=== PATIENT | female | born 1970 | race Caucasian/White ===

== ENCOUNTER → 2023-10-23 16:29 | Outpatient (REF) | payer BC, SELFPAY | LOC: HWWDC 16:29 | PROVIDERS: ATTENDING PHYSICIAN Obstetrics & Gynecology; FAMILY PHYSICIAN Family Medicine | DX: Z12.31 Encounter for screening mammogram for malignant neoplasm of breast (principal) | CPT/HCPCS: 77063; 77067 ==

== ENCOUNTER → 2023-12-13 08:57 | Outpatient (REF) | payer BC, SELFPAY | LOC: WDC 08:57 | PROVIDERS: ATTENDING PHYSICIAN Obstetrics & Gynecology; FAMILY PHYSICIAN Family Medicine | DX: R92.8 Other abnormal and inconclusive findings on diagnostic imaging of breast (principal) | CPT/HCPCS: 76642 ==

== ENCOUNTER → 2023-12-14 07:08 | Outpatient (REF) | payer BC, SELFPAY ==
--- NOTE | 2023-12-14 09:15 | OID.BR.INTR ---
[facility] Breast Navigator - Initial
- -
Date of Contact: 12/14/23
Met with patient. Patient given written information on navigator services and support services available at [facility]. Will follow up as needed per protocol.
== END ==
LOC: WDC 07:08
PROVIDERS: ATTENDING PHYSICIAN Obstetrics & Gynecology
DX: N63.20 Unspecified lump in the left breast, unspecified quadrant (principal)
CPT/HCPCS: 88305; 19083; 19084; 77065; 88341; 88342; 88360; A4648

== ENCOUNTER → 2023-12-25 16:19 | Outpatient (REF) | payer BC, SELFPAY | LOC: MRI 3T 16:19 | PROVIDERS: ATTENDING PHYSICIAN Surgery; FAMILY PHYSICIAN Family Medicine | DX: C50.412 Malignant neoplasm of upper-outer quadrant of left female breast (principal); Z17.0 Estrogen receptor positive status [ER+] | CPT/HCPCS: 77049; A9585 ==

== ENCOUNTER → 2024-01-02 09:02 | Outpatient (REF) | payer BC, SELFPAY | LOC: RAD 09:02 | PROVIDERS: ATTENDING PHYSICIAN Surgery; FAMILY PHYSICIAN Family Medicine | DX: C50.412 Malignant neoplasm of upper-outer quadrant of left female breast (principal); Z17.0 Estrogen receptor positive status [ER+] | CPT/HCPCS: 71260; 74177; 78306; A9503; Q9967 ==

== ENCOUNTER → 2024-01-10 07:20 | Outpatient (REF) | payer BC, SELFPAY | LOC: RCS 07:20 | PROVIDERS: ATTENDING PHYSICIAN Internal Medicine Hematology & Oncology; FAMILY PHYSICIAN Family Medicine | DX: C50.112 Malignant neoplasm of central portion of left female breast (principal) | CPT/HCPCS: 93306; 93356 ==

== ENCOUNTER → 2024-01-11 08:31 | Outpatient (REF) | payer BC, SELFPAY ==
[2024-01-11 08:50] VITALS: BP 110/65; BP_SYST 70
[2024-01-11] MEDS: ANCEF 10 IV (09:05)
[2024-01-11 10:35] VITALS: BP 121/77; BP_SYST 67
[2024-01-11 10:55] VITALS: BP 119/78
== END ==
LOC: RADI 08:31
PROVIDERS: ATTENDING PHYSICIAN Internal Medicine Hematology & Oncology; FAMILY PHYSICIAN Family Medicine
DX: C50.112 Malignant neoplasm of central portion of left female breast (principal)
CPT/HCPCS: 36561; 76937; 77001; 99152; 99153; C1788

== ENCOUNTER → 2024-03-13 14:31 | Outpatient (REF) | payer OTHER, SELFPAY | LOC: WDC 14:31 | PROVIDERS: ATTENDING PHYSICIAN Internal Medicine Hematology & Oncology; FAMILY PHYSICIAN Family Medicine | DX: N63.20 Unspecified lump in the left breast, unspecified quadrant (principal); C50.112 Malignant neoplasm of central portion of left female breast | CPT/HCPCS: 76642 ==

== ENCOUNTER → 2024-07-21 10:03 | Outpatient (REF) | payer OTHER, SELFPAY | LOC: WDC 10:03 | PROVIDERS: ATTENDING PHYSICIAN Surgery | DX: C50.412 Malignant neoplasm of upper-outer quadrant of left female breast (principal) | CPT/HCPCS: 19285; 38792; 76942; A4648; A9541 ==

== ENCOUNTER 2024-07-22 11:55 | Inpatient (IN) | payer OTHER, SELFPAY ==
[2024-07-14 08:13] VITALS: BMI 28.8
[2024-07-14 08:39] LABS: Hematocrit 39.8 % (37.0-47.0); Hemoglobin 14.2 g/dL (12.0-16.0); Mean Corp Hgb Conc. 35.7 g/dL (33.0-37.0); Mean Corpuscular Hgb 32.9 pg (27.0-31.0); Mean Corpuscular Volume 92.1 fL (81.0-99.0); Mean Platelet Volume 8.7 fL (7.4-10.4); Platelet Count 327 10^3/uL (130-400); Red Blood Cell Count 4.32 10^6/uL (4.20-5.40); Red Cell Dist. Width 12.1 % (11.5-14.5); White Blood Cell Count 4.6 10^3/uL (4.8-10.8)
[2024-07-14 09:10] LABS: ALT (SGPT) 35 U/L (0-35); AST (SGOT) 27 U/L (14-36); Alkaline Phosphatase 41 U/L (38-126); Blood Urea Nitrogen 13 mg/dl (7-17); Calcium 10.1 mg/dl (8.4-10.2); Carbon Dioxide 28 mmol/L (22-30); Chloride 100 mmol/L (98-107); Estimated Creatinine Clearance 107 ml/min; Glucose 96 mg/dl (70-99); Potassium 4.3 mmol/L (3.5-5.1); Sodium 143 mmol/L (135-145); Total Bilirubin 0.5 mg/dl (0.2-1.3); Total Protein 7.8 g/dl (6.3-8.2); eGFR > 60.00
[2024-07-14 09:16] LABS: Prealbumin (Transthyretin) 31.7 mg/dl (17.6-36.0)
[2024-07-14 09:28] LABS: Vitamin D, 25-OH*** 32.8 ng/mL (30-80)
[2024-07-22] VITALS (14 sets, daily range): BP systolic 50–175; BP diastolic 39–80; BMI 28.8
[2024-07-22] MEDS: TYLENOL 1000 MG PO (12:11)
[2024-07-22] MEDS: LOVENOX 40 MG SC (12:27)
--- NOTE | 2024-07-22 13:08 | W.SUR.PREOP ---
Pre-Operative Surgical Note
-
I have examined this patient prior to the performance of the scheduled procedure.
The patient's condition is unchanged from the time of the current History and
Physical and the patient is able to undergo the scheduled procedure.
--- NOTE | 2024-07-22 15:30 | W.IMMPOSTOP ---
Surgical Immed Post Op Note
-
Primary Surgeon: BANDAR Rico MD
Assisting Surgeon:
Pre-op Diagnosis: Breast CA
Post-op Diagnosis: Same
Procedure Performed: Bilateral implant removal, bilateral tissue concrete paving supervisor reconstruction, spy
Anesthesia Type: General
Specimen / Cultures: per Dr. Parker
Estimated Blood Loss: 30cc
Complications: None
Operative Findings: As expected
--- NOTE | 2024-07-22 15:30 | OR.RPT ---
Operative Report
Operative Report
Date of Surgery: 07/22/24
Surgeon: BANDAR Rico MD
Preoperative diagnosis: Left Breast cancer, h/o breast implants
Postoperative diagnosis: Same
Procedure:
1. Bilateral immediate breast reconstruction with tissue expanders
2. Bilateral removal of breast implants with capsulotomies
3. Spy angiography
Complications: None
Anesthesia: General
EBL: 30c
Bridge Toll Collector size: 13 cm, filled to 300cc NS
Indications for procedure: Patient was referred to me by Dr. Parker with a recent diagnosis of breast cancer. She was planned to undergo bilateral mastectomy. We discussed her options for breast reconstruction at length including implant based
and autologous options. She had a history of bilateral breast implants and breast lift scars. The patient opted for immediate reconstruction with tissue expanders. She understands that the final reconstruction will be staged. We also discussed the
use of ADM and spy angiography. Risks include reconstructive failure, capsular contracture, infection, delayed wound healing, mastectomy skin flap necrosis, hematoma, seroma and need for repeat procedure. Patient understood these risks and desired
to proceed. Consents were signed accordingly.
Procedure in detail: Patient was identified the preoperative area and the surgical site was confirmed to be the bilateral breast. All questions were answered and consents were confirmed. Patient was then sat upright and normal anatomical landmarks
were marked including midline and inframammary fold. Patient was then taken back to the operating room placed supine on the table. She was prepped and draped in the usual sterile fashion using ChloraPrep solution. A Estrada catheter was placed. A
timeout for patient safety was performed was confirmed that bilateral SCDs were in place and preoperative antibiotics administered. The procedure began with Dr. Parker first performing the mastectomy. Her op report will be dictated separately.
When I entered the procedure, the first sided mastectomy had been completed. As per our plan, the capsule was maintained intact and the implant was removed after capsulotomy. It was a 425cc saline mentor implant. I inspected the wound bed of the
chest wall and ensured meticulous hemostasis. The base width was measured and appropriate tissue camera operator was selected. The camera operator was then sutured to the chest wall with a series of 2-0 silk sutures. Pectoralis and intercostal blocks were
performed with Marcaine. 2 drains were then placed in the preaxial area line with a long subcutaneous tunnel and sutured in place with 2-0 Prolene sutures. The wound was irrigated with double antibiotic solution and dilute Betadine. The capsule
was closed with 2-0 vicryls. The mastectomy incisions were then closed with a series of 3-0 Vicryl's in the deep subcutaneous tissues followed by 3-0 and 4-0 Monocryl's in the deep dermis and superficial skin.
Attention was then placed on the contralateral side after completion of the mastectomy. The exact same procedure was performed. Capusle was maintained and the implant was removed after a capsulotomy. An camera operator of the same size was opened soaked
in Betadine and the construct was then sutured to the chest wall using 2-0 silks. Pectoralis and intercostal blocks were performed. Meticulous hemostasis was ensured and the wound was irrigated with combination of double antibiotic solution
consisting of Ancef and gentamicin as well as dilute Betadine. The capsule was closed over the camera operator with 2-0 vicryl. The wound was closed in layers with 3-0 Vicryl followed by 3-0 Monocryl and 4-0 Monocryl superficial skin.
Spy angiography was performed after closure to ensure adequate vascularity of the bilateral mastectomy flaps. This was confirmed. The wounds were dressed accordingly and a supportive bra was placed. The patient was extubated taken to the PACU for
further care. All counts were correct at the end the case was performed out complication.
--- NOTE | 2024-07-22 17:33 | W.IMMPOSTOP ---
Surgical Immed Post Op Note
-
Primary Surgeon: Elena
Assisting Surgeon: None
Pre-op Diagnosis: Left breast ca S/P neoadjuvant chemotherapy
Post-op Diagnosis: Same
Procedure Performed: Bilateral mastectomies, left sentinel lymph node mapping and biopsy. left axillary dissection
Anesthesia Type: GET
Specimen / Cultures: Bilateral breasts, left sentinel nodes, left axillary contents
Estimated Blood Loss: 100cc
Complications: None
Operative Findings: Positive sentinel node
Axillary Lymph Node Dissection
-
Operation performed with Curative Intent: Yes
Boundaries: Axillary Vein, Chest Wall, Latissimus Dorsi
Resection performed within boundaries: Yes
Nerves ID'd & Preserved during Dissection: Long Thoracic Nerves, Thoracodorsal Nerve and Branches of Intercostobrachial Nerves
[place] Node Bx Breast Cancer
[place] Node Bx Breast Cancer
Operation performed with curative intent: Yes
Tracer(s) to ID [place] Nodes in Non-Neoadjuvant setting: N/A
Tracer(s) to ID [place] Nodes in the Neoadjuvant Setting: Dye and Radioactive Tracer
All nodes at end of dye-filled Lymphatic Channel removed: Yes
All Significantly Radioactive Nodes were removed: Yes
All Palpably Suspicious Nodes were Removed: Yes
Bx Proven Pos Nodes Marked Prior to Chemo ID'd & Removed: Yes
[2024-07-22] MEDS: COMPAZINE 5 MG IV (18:47)
[2024-07-22] MEDS: TYLENOL PO (19:00)
[2024-07-22] MEDS: ZOFRAN 4 MG IV (19:32)
--- NOTE | 2024-07-22 20:00 | PTCARENOTE ---
Pt arrived to [facility] at 195 from PACU in a bed. Pt has 4 BELLA drains; 2 on the Left lateral breast and 2 on the Right lateral breast. Pt has a surgical bra on. Admission questions answered. Head to toe completed. Bed locked and in lowest position. Pt
oriented to room and call reyez. Care ongoing.
[2024-07-22] MEDS: NEURONTIN PO (20:04)
[2024-07-22] MEDS: NEURONTIN 100 MG PO (22:04)
[2024-07-22] MEDS: ANCEF 5 IV (22:04)
[2024-07-23 00:22] VITALS: BMI 28.9
[2024-07-23] MEDS: TYLENOL 1000 MG PO ×2 (00:34→05:46)
[2024-07-23 02:45] VITALS: BP 95/54
[2024-07-23] MEDS: ANCEF 5 IV (05:46)
[2024-07-23 06:26] LABS: Hemoglobin 12.2 g/dL (12.0-16.0)
[2024-07-23 06:54] LABS: Blood Urea Nitrogen 13 mg/dl (7-17); Calcium 9.3 mg/dl (8.4-10.2); Carbon Dioxide 25 mmol/L (22-30); Chloride 104 mmol/L (98-107); Estimated Creatinine Clearance 107 ml/min; Glucose 115 mg/dl (70-99); Potassium 4.4 mmol/L (3.5-5.1); Sodium 140 mmol/L (135-145); eGFR > 60.00
[2024-07-23 07:10] VITALS: BP 117/55
--- NOTE | 2024-07-23 08:04 | W.DCSUMMARY ---
Discharge Summary
Discharge Data
Date of Admission: 07/22/24
Date of Discharge: 07/23/24
-
Pending Results: No
Hospital Course
Admitted following bilateral mastectomy and immediate breast cancer reconstruction with immediate direct customer service representative reconstruction.
Routine postoperative course
Discharged POD1. Able to ambulate, voiding, pain well controlled on PO meds and tolerating a regular diet.
Discharge Plan
-
Patient Disposition: Home (Routine Discharge)
Discharge Diagnosis/Procedures: s/p bilateral mastectomy and immediate direct customer service representative reconstruction
Condition: Good
Diet: Regular
Activity: No strenuous activity
Additional Activity: No heavy lifting >10lbs
Driving Restrictions: Not until seen by your Dr
Bathing Restrictions: OK to Shower
Other Services: VN
Wound Care: Remove dressings if they become wet, ok to shower
Referrals:
Primitivo Hays MD [Family Provider] -
Prescriptions:
New
tramadol 50 mg Tablet
50 mg PO Q4HPRN PRN (Reason: MODERATE PAIN) 7 Days Qty: 20 0RF
acetaminophen [Tylenol Extra Strength] 500 mg Tablet
1,000 mg PO Q6 30 Days Qty: 240 1RF
gabapentin 100 mg Capsule
100 mg PO TID 30 Days Qty: 90 2RF
diazepam 5 mg Tablet
5 mg PO TIDPRN PRN (Reason: Muscle Spasms) 14 Days Qty: 42 0RF
cefadroxil 500 mg capsule
500 mg PO BID Qty: 42 0RF
Continued
escitalopram oxalate 10 MG tablet
10 mg PO DAILY
Patient Comments:
pt. stated that she took this medication today.
amlodipine 5 mg Tablet
5 mg PO HS
nebivolol [Bystolic] 10 mg Tablet
10 mg PO DAILY
multivitamin Tablet
1 tab PO DAILY
magnesium 200 mg Tablet
200 mg PO DAILY
cholecalciferol (vitamin D3) [Vitamin D3] 25 mcg (1,000 unit) Tablet
25 mcg PO DAILY
Discharge Orders:
Discharge Patient (As Directed); Ordered 07/23/24
Ordered By: Ismael Rico
Discharge Date and Time
Print Language: UPPER SORBIAN
--- NOTE | 2024-07-23 08:20 | W.PN.PLAS ---
Progress Note
Subjective Data
pain well-controlled, no increased work of breathing denies shortness of
Objective Data
Vital Signs
Temp Pulse Resp BP Pulse Ox
97.9 F 83 16 117/55 98
07/23/24 07:10 07/23/24 07:10 07/23/24 07:10 07/23/24 07:10 07/23/24 07:10
Intake and Output
07/22/24 07/23/24 07/24/24
06:59 06:59 06:59
Intake Total 590 / 590
Output Total 1055 / 1055
Balance -465 / -465
Intake:
Oral fluids 480 / 480
IV fluids (Total) 100 / 100
normosol 100 / 100
IV piggybacks
Output:
Drain Output (Total) 555 / 555
Left Breast Moe-Quiles A 155 / 155
Left Breast Moe-Quiles B 185 / 185
Right Breast Moe-Quiles C 115 / 115
Right Breast Moe-Quiles D 100 / 100
Urine, Estrada 500 / 500
breath physical exam:
No acute distress
No increased work of breathing
Bilateral breast with chief concierge in place, routine healing
No undrained collections
Drain serosanguineous with appropriate output
Lab Results
07/23/24 04:48
07/23/24 04:48
Assessment / Plan
status post bilateral mastectomy with immediate reconstruction with tissue expanders, implant removal
Regular diet
Estrada out
Ambulate
Discharge to home with visiting nurse and close surgical follow-up
[2024-07-23] MEDS: LEXAPRO 10 MG PO (08:46)
[2024-07-23] MEDS: NEURONTIN 100 MG PO (08:46)
[2024-07-23] MEDS: BYSTOLIC 10 MG PO (09:56)
--- NOTE | 2024-07-23 10:09 | CM ---
Met with pt at bedside
Pt reports she lives in a 2 story home with her and daughter; 3 steps to enter, 12 steps to 2nd fl
Independent, employed FT, drives
DME - none
SNF/HH - no past hx
Has ride home at discharge
PCP - Primitivo Hays
Pharm - [facility]
CM consult - VN/drains
Discussed with pt - no preference
TT sent to [facility] Liaison for home care needs
Plan - anticipate home with VN
[2024-07-23 10:53] VITALS: BP 120/65
--- NOTE | 2024-07-23 11:12 | VNURNOTE ---
Home Health Liaison met with patient, daughter, and spouse to discuss [facility] nurse/therapy, visits, schedule and homebound status. Patient is agreeable and understands that visits at home will be 2-3 x per week to assess and teach drain and medical
management.
[facility] brochure provided with contact information. Patient is aware that [facility] will contact them for start of care in 1-2 days after discharge from .
[facility] referral completed in [facility] Port.
--- NOTE | 2024-08-07 17:36 | PN.CDI ---
CDI
- -
CDI:
Physician Documentation Request
Admit Date: 07/22/24 11:55
Dear Doctor Trisha
Clinical indicators:
According to inpatient coding guidelines, we cannot code directly from the path report without physician conformation.
Patient admitted with breast cancer for mastectomy and lymphadenectomy
Path report: A. [place] lymph node #1 positive for metastatic carcinoma
B. [place] lymph node #2; two lymph nodes positive for metastatic carcinoma
E. additional axillary contents: four of nine lymph nodes positive for metastatic carcinoma
Please clarify the following:
Metastatic carcinoma of axillary lymph nodes is a valid diagnosis
Metastatic carcinoma of axillary lymph nodes is not a valid diagnosis.
Other, please specify
Use of terms such as suspected, likely, concern for, or probable (associated with a specific diagnosis that is being evaluated, monitored, or treated as if it exists) are acceptable and can be coded in the inpatient setting, when documented at the
time of discharge.
Thank you,
Abean Harvey
[facility] Associate Inpatient
Please use your independent medical judgment in providing your response.
--- NOTE | 2024-08-12 14:29 | PN.CDI ---
CDI
- -
CDI:
Physician Documentation Request
Admit Date: [f_Reg Admit Date Time]
Dear Doctor Elena
Please review the following and provide your response in the progress notes.
Clinical Indicators:
According to inpatient coding guidelines, we cannot code directly from the path report without physician conformation.
Additional clinical indicators in the chart include:
Patient admitted with breast cancer fro mastectomy and lymphadenectomy.
Path report:A. [place] lymph node #1 positive fro metastatic carcinoma
B. [place] lymph node #2: two lymph nodes positive for metastatic carcinoma
E. additional axillary contents: four of nine lymph nodes positive for metastatic carcinoma
Please clarify the following:
Metastatic carcinoma of axillary lymph nodes is a valid diagnosis (Please include it in your progress notes)
Metastatic carcinoma of axillary lymph nodes is not a valid diagnosis for this patient
- Other, please specify
Use of terms such as suspected, likely, concern for, or probable are acceptable for a diagnosis that is being evaluated, monitored or treated as if it exists and can be coded in the inpatient setting, when documented at the time of discharge.
Thank you,
Abena Harvey
[facility] Associate Inpatient
Please use your independent medical judgment in providing your response.
== END 2024-07-23 11:30 | disposition home health service (06) | DRG 580 ==
LOC: 2 SOUTH 11:55
PROVIDERS: Surgery; ADMITTING PHYSICIAN Surgery Plastic and Reconstructive Surgery; FAMILY PHYSICIAN Family Medicine
PROC: 4A1 Measurement and Monitoring, Physiological Systems, Monitoring (ICD-10-PCS; 2024-07-22)
PROC: 0HHV0NZ Insertion of Tissue Expander into Bilateral Breast, Open Approach (ICD-10-PCS; 2024-07-22)
PROC: 0HNV0ZZ Release Bilateral Breast, Open Approach (ICD-10-PCS; 2024-07-22)
PROC: 07T60ZZ Resection of Left Axillary Lymphatic, Open Approach (ICD-10-PCS; 2024-07-22)
PROC: 0HPT0JZ Removal of Synthetic Substitute from Right Breast, Open Approach (ICD-10-PCS; 2024-07-22)
PROC: 07B60ZX Excision of Left Axillary Lymphatic, Open Approach, Diagnostic (ICD-10-PCS; 2024-07-22)
PROC: 0HTV0ZZ Resection of Bilateral Breast, Open Approach (ICD-10-PCS; 2024-07-22)
PROC: 0HPU0JZ Removal of Synthetic Substitute from Left Breast, Open Approach (ICD-10-PCS; 2024-07-22)
DX: C50.412 Malignant neoplasm of upper-outer quadrant of left female breast (principal); C77.3 Secondary and unspecified malignant neoplasm of axilla and upper limb lymph nodes; I10 Essential (primary) hypertension; Z17.0 Estrogen receptor positive status [ER+]; Z80.3 Family history of malignant neoplasm of breast; Z92.21 Personal history of antineoplastic chemotherapy; Z88.5 Allergy status to narcotic agent; Z98.82 Breast implant status; Z79.899 Other long term (current) drug therapy
CPT/HCPCS: 88305; 88307; 88332; 36415; 76098; 80048; 80053; 82306; 84134; 85014; 85018; 85027; 88331; 88341; 88342; 88360; 93005; A4648; C1789; L8000

== ENCOUNTER → 2024-09-03 12:03 | Outpatient (REF) | payer OTHER, SELFPAY ==
[2024-09-03 12:30] VITALS: BP 120/72; BP_SYST 66
[2024-09-03 13:22] VITALS: BP 127/84; BP_SYST 65
[2024-09-03 13:31] VITALS: BP 127/84
== END ==
LOC: RADI 12:03
PROVIDERS: ATTENDING PHYSICIAN Internal Medicine Hematology & Oncology; FAMILY PHYSICIAN Family Medicine
DX: Z45.2 Encounter for adjustment and management of vascular access device (principal); Z85.3 Personal history of malignant neoplasm of breast
CPT/HCPCS: 36590; 77001

== ENCOUNTER → 2024-09-23 08:18 | Outpatient (REF) | payer OTHER, SELFPAY | LOC: RAD 08:18 | PROVIDERS: ATTENDING PHYSICIAN Internal Medicine Hematology & Oncology; FAMILY PHYSICIAN Family Medicine; REFERRING PHYSICIAN Internal Medicine Cardiovascular Disease | DX: I35.1 Nonrheumatic aortic (valve) insufficiency (principal); C50.112 Malignant neoplasm of central portion of left female breast; R06.02 Shortness of breath | CPT/HCPCS: 77080 ==

== ENCOUNTER → 2024-10-31 08:01 | Outpatient (REF) | payer OTHER, SELFPAY | LOC: RAD 08:01 | PROVIDERS: ATTENDING PHYSICIAN Internal Medicine Hematology & Oncology; FAMILY PHYSICIAN Family Medicine | DX: C50.112 Malignant neoplasm of central portion of left female breast (principal) | CPT/HCPCS: 71260; 74177; 78306; A9503; Q9967 ==

== ENCOUNTER → 2025-01-12 15:41 | Outpatient (REF) | payer OTHER, SELFPAY | LOC: RAD 15:41 | PROVIDERS: ATTENDING PHYSICIAN Surgery Plastic and Reconstructive Surgery; FAMILY PHYSICIAN Family Medicine | DX: Z42.1 Encounter for breast reconstruction following mastectomy (principal) | CPT/HCPCS: 74174; Q9967 ==

== ENCOUNTER 2025-04-22 06:02 | Inpatient (IN) | payer OTHER, SELFPAY ==
[2025-04-07 08:45] LABS: Hematocrit 33.5 % (37.0-47.0); Hemoglobin 12.1 g/dL (12.0-16.0); Mean Corp Hgb Conc. 36.1 g/dL (33.0-37.0); Mean Corpuscular Volume 99.7 fL (81.0-99.0); Nucleated Red Blood Cells % 0 %; Platelet Count 280 10^3/uL (130-400); Red Cell Dist. Width 12.9 % (11.5-14.5)
[2025-04-07 09:18] LABS: ALT (SGPT) 46 U/L (0-35); AST (SGOT) 27 U/L (14-36); Albumin 4.3 g/dl (3.5-5.0); Alkaline Phosphatase 38 U/L (38-126); Blood Urea Nitrogen 14 mg/dl (7-17); Calcium 9.6 mg/dl (8.4-10.2); Carbon Dioxide 24 mmol/L (22-30); Chloride 107 mmol/L (98-107); Glucose 96 mg/dl (70-99); Potassium 4.1 mmol/L (3.5-5.1); Sodium 141 mmol/L (135-145); Total Protein 7.2 g/dl (6.3-8.2); eGFR > 60.00
--- NOTE | 2025-04-07 12:51 | PTCARENOTE ---
Abnormal ECG on 04/07/2025, Dr. Mcbride notified, no further orders at this time.
[2025-04-07 13:56] VITALS: BMI 28.0
[2025-04-22] VITALS (17 sets, daily range): BP systolic 105–131; BP diastolic 62–76; BMI 28.0; BMI 28.9
[2025-04-22] MEDS: LOVENOX 40 MG SC (07:01)
[2025-04-22] MEDS: NORMOSOL-R/PLASMALYTE-A 1000 IV (07:01)
--- NOTE | 2025-04-22 17:17 | OR.RPT ---
Operative Report
Operative Report
Date of Service: 04/22/25
Surgeon: Yuliya Dinero MD
Co-Surgeon: Jenny Rico MD
Assisting Surgeon: Jennifer Parker MD
Preoperative diagnosis:
1. Personal history of breast cancer
2. 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
3. Radiation deformity of left breast
Postoperative diagnosis: Same
Procedure:
1. Bilateral removal of tissue expanders
2. Bilateral partial capsulectomies
3. Bilateral preparation of mastectomy defect for recipient of graft [id number] on each side
4. Bilateral delayed MEHUL flap breast reconstruction
5. SPY Angiography
6. Bilateral internal mammary lymph node biopsy
7. Application of IVANA disposable negative pressure incisional wound VAC.
Anesthesia: General
EBL: 150 cc
Specimens: Per Dr. Parker
Drains: 4 15 Vietnamese Morales drains
Complications: None
Indications: This is a 54-year-old female who has a history of breast cancer and bilateral nipple sparing mastectomies with tissue hand meat salter based breast reconstruction. She then had left breast radiation with signficant contracture and deformity
and desired transitioning to autologous reconstruction. She was referred to me by her primary plastic surgeon, Dr. Rico. I discussed the various options available to her. She was interested in pursuing autologous reconstruction with tissue from
her abdomen and she had acceptable donor site. Risks of the procedure were discussed including flap failure, return to OR for arterial or venous thrombosis, wound healing issues, donor site morbidity to the abdomen and VTE.� We reviewed the nature
of the procedure and the risk benefits and alternatives at length.� All her questions were answered.� Consent was signed prior to surgery.
Operative findings:
The patient was brought to the operating room and placed supine on the operating room table. General anesthesia was induced with endotracheal tube.� A Estrada catheter was placed.� Patient was prepped and draped in the standard fashion using
chlorhexidine prep.� A timeout was performed.
Dr. Rico and I started the dissection of the flaps in the abdomen together to confirm the markings.� Once the inferior incision was confirmed and I was able to start dissecting the abdominal flap, we split up into 2 teams, with Dr. Rico in the
left chest while i was working in the right abdomen. This involved dissection of the abdominal wall and identification of perforating vessels into the abdominal flaps bilaterally.� On the patient's right side a 4 teasel gig operator MEHUL flap was dissected.�
This involved little to no muscle to minimize the morbidity to the abdominal wall.� The flap was dissected down to the source vessels where the inferior epigastrics were coming off of the external iliac.
On the contralateral side another 4 teasel gig operator MEHUL flap was also dissected.� This similarly involved a tedious dissection where the inferior epigastrics were traced down to their source vessel.
In the chest, the tissue expanders were removed. The pectoralis muscle was dissected out from the overlying mastectomy skin flap and returned down to its anatomic position on the chest wall. This was done bilaterally. This was done to prepare the
site for recipient of the flap. This measured approximately 15 x 15cm on each side. Dr. Rico dissected the left internal mammaries and I performed the internal mammary vessel dissection on the right. The third rib was resected bilaterally. The
internal mammary arteries and veins were identified and carefully circumferentially dissected. Internal mammary lymph nodes were encountered on both sides and these were sent off for pathologic evaluation.
The right flap was harvested from the abdomen and transferred to the left chest wall first as this was the radiated side.� Microvascular anastomosis was then performed to the internal mammary vessels.� This was done using a 3.5 millimeter double end chucking machine operator
for the venous anastomosis.� The arterial anastomosis was performed using 8-0 nylon suture in the normal standard fashion.
After the microvascular anastomosis was performed there was excellent perfusion of the flap.� This was temporarily inset and attention was turned to the contralateral breast.
The left hemiabdomen was then transferred to the right chest wall.� The identical procedure was then performed from a microvascular perspective.� This side was with a 3.5 mm double end chucking machine operator for the venous anastomosis and 8-0 nylon suture for the arterial
anastomosis. This flap similarly had excellent perfusion afterwards.
While I was performing a microvascular anastomosis on the chest wall, Dr. Rico was dissecting the other MEHUL flap in the abdomen.� We then switched roles for the contralateral sides.
The abdominal wall was reconstructed using a piece of phasix mesh in an underlay fashion.� The fascia was primarily closed bilaterally. The abdominal wall was then closed in a layered fashion.� This was done after performing a tap block using
marcaine divided evenly amongst the hemiabdomens.� Two 15 Vietnamese morales drains were placed in the abdomen.� These were secured using 2-0 Prolene sutures.� The Leora's fascia was then reapproximated using 2-0 Vicryl suture.� The skin was then closed
in a layered fashion using insorb dermal hema and a running Monocryl suture.
Bilateral pec and intercostal blocks were performed with marcaine and a 15 Vietnamese morales drain was placed in each breast pocket.� These were also secured using 2-0 Prolene sutures.�
SPY angiography was performed and confirmed appropriate perfusion of both flaps as well as the mastectomy skin flaps.
The breast flaps were then de-epithelialized and inset.�The breast skin was closed in layered fashion using 3-0 and 4-0 Monocryl suture.� All incisions were dressed with Dermabond glue.� Hand-held Doppler signals were found in the reconstructed
breasts and these were marked with a 5-0 Prolene suture. A IVANA incisional wound VAC was applied to the abdominal incision.
The patient tolerated the procedure very well.� All counts were correct at the completion of the case.� The patient was then extubated uneventfully and transferred to the ICU in stable condition.
Dr. Rogelio Rico was my co-surgeon for this case.� His status as a co-surgeon was critical and allowing us to function as two separate teams.� This allowed us to operate simultaneously on both the breasts and on each side of the abdomen.� This
was essential for the appropriate safety and efficiency of this procedure.
Dr. Parker was our assistant professor of spanish for this case after performing the mastectomies. Her assistance was critical to allow for us to execute the surgery in a safe and timely manner.
--- NOTE | 2025-04-22 17:24 | W.IMMPOSTOP ---
Surgical Immed Post Op Note
-
Primary Surgeon: BANDAR Rico MD
Assisting Surgeon: Yuliya Dinero MD, Jennifer Parker MD
Pre-op Diagnosis: h/o breast CA, s/p radiation, s/p bilateral mastectomy and immediate reconstruction with expanders
Post-op Diagnosis: Same
Procedure Performed: Bilateral MEHUL flap breast reconstruction, removal of tissue expanders
Anesthesia Type: GA
Specimen / Cultures: Per Dr. Parker
Estimated Blood Loss: 150cc
Complications: None
Operative Findings: As expected
--- NOTE | 2025-04-22 17:25 | OR.RPT ---
Operative Report
Operative Report
Date of Service: 04/22/25
Surgeon: Jenny Rico MD
Co-Surgeon:Yuliya Dinero MD
Assisting Surgeon: Jennifer Parker MD
Preoperative diagnosis:
1. Personal history of breast cancer
2. 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
3. Radiation deformity of left breast
Postoperative diagnosis: Same
Procedure:
1. Bilateral removal of tissue expanders
2. Bilateral partial capsulectomies
3. Bilateral preparation of mastectomy defect for recipient of graft [id number] on each side
4. Bilateral delayed MEHUL flap breast reconstruction
5. SPY Angiography
6. Bilateral internal mammary lymph node biopsy
7. Application of IVANA disposable negative pressure incisional wound VAC.
Anesthesia: General
EBL: 150 cc
Specimens: Per Dr. Parker
Drains: 4 15 Cymro Morales drains
Complications: None
Indications: This is a 54-year-old female who has a history of breast cancer and bilateral nipple sparing mastectomies with tissue prison guard supervisor based breast reconstruction. She then had left breast radiation with significant contracture and deformity
and desired transitioning to autologous reconstruction. She was interested in her second stage reconstruction after completing radiation therapy and waiting an appropriate amount of time. I discussed the various options available to her. She was
interested in pursuing autologous reconstruction with tissue from her abdomen and she had acceptable donor site. Risks of the procedure were discussed including flap failure, return to OR for arterial or venous thrombosis, wound healing issues,
donor site morbidity to the abdomen and VTE.� I referred her to my co-surgeon Dr. Yuliya Dinero given the bilateral nature of the procedure and multiple operative sites. Intent was to decrease risks and operative time, minimize complications. We
reviewed the nature of the procedure and the risk benefits and alternatives at length.� All her questions were answered.� Consent was signed prior to surgery.
Operative findings:
The patient was brought to the operating room and placed supine on the operating room table. General anesthesia was induced with endotracheal tube.� A Estrada catheter was placed.� Patient was prepped and draped in the standard fashion using
chlorhexidine prep.� A timeout was performed.
Dr. Dinero and I started the dissection of the flaps in the abdomen together to confirm the markings.� Once the inferior incision was confirmed and we were able to start dissecting the abdominal flap, we split up into 2 teams, with myself in the left
chest while Dr. Dinero was working in the right abdomen. This involved dissection of the abdominal wall and identification of perforating vessels into the abdominal flaps bilaterally.� On the patient's right side a 4 audio/video engineer MEHUL flap was
dissected.� This involved little to no muscle to minimize the morbidity to the abdominal wall.� The flap was dissected down to the source vessels where the inferior epigastrics were coming off of the external iliac.
On the contralateral side another 4 audio/video engineer MEHUL flap was also dissected.� This similarly involved a tedious dissection where the inferior epigastrics were traced down to their source vessel.
In the chest, the tissue expanders were removed. The pectoralis muscle was dissected out from the overlying mastectomy skin flap and returned down to its anatomic position on the chest wall. This was done bilaterally. This was done to prepare the
site for recipient of the flap. This measured approximately 15 x 15cm on each side. I dissected the left internal mammaries and Dr. Dinero performed the internal mammary vessel dissection on the right. The third rib was resected bilaterally. The
internal mammary arteries and veins were identified and carefully circumferentially dissected. Internal mammary lymph nodes were encountered on both sides and these were sent off for pathologic evaluation.
The right flap was harvested from the abdomen and transferred to the left chest wall first as this was the radiated side.� Microvascular anastomosis was then performed to the internal mammary vessels.� This was done using a 3.5 millimeter infrastructure project manager
for the venous anastomosis.� The arterial anastomosis was performed using 8-0 nylon suture in the normal standard fashion.
After the microvascular anastomosis was performed there was excellent perfusion of the flap.� This was temporarily inset and attention was turned to the contralateral breast.
The left hemiabdomen was then transferred to the right chest wall.� The identical procedure was then performed from a microvascular perspective.� This side was with a 3.5 mm infrastructure project manager for the venous anastomosis and 8-0 nylon suture for the arterial
anastomosis. This flap similarly had excellent perfusion afterwards.
While Dr. Dinero was performing a microvascular anastomosis on the chest wall, I was dissecting the other MEHUL flap in the abdomen.� We then switched roles for the contralateral sides.
The abdominal wall was reconstructed using a piece of phasix mesh in an underlay fashion.� The fascia was primarily closed bilaterally. The abdominal wall was then closed in a layered fashion.� This was done after performing a tap block using
marcaine divided evenly amongst the hemiabdomens.� Two 15 Cymro morales drains were placed in the abdomen.� These were secured using 2-0 Prolene sutures.� The Leora's fascia was then reapproximated using 2-0 Vicryl suture.� The skin was then closed
in a layered fashion using insorb dermal hema and a running Monocryl suture.
Bilateral pec and intercostal blocks were performed with marcaine and a 15 Cymro morales drain was placed in each breast pocket.� These were also secured using 2-0 Prolene sutures.�
SPY angiography was performed and confirmed appropriate perfusion of both flaps as well as the mastectomy skin flaps.
The breast flaps were then de-epithelialized and inset.�The breast skin was closed in layered fashion using 3-0 and 4-0 Monocryl suture.� All incisions were dressed with Dermabond glue.� Hand-held Doppler signals were found in the reconstructed
breasts and these were marked with a 5-0 Prolene suture. A IVANA incisional wound VAC was applied to the abdominal incision.
The patient tolerated the procedure very well.� All counts were correct at the completion of the case.� The patient was then extubated uneventfully and transferred to the ICU in stable condition.
Dr. Yuliya Dinero was my co-surgeon for this case.� His status as a co-surgeon was critical and allowing us to function as two separate teams.� This allowed us to operate simultaneously on both the breasts and on each side of the abdomen.� This was
essential for the appropriate safety and efficiency of this procedure.
Dr. Parker was our video production assistant for this case after removing the expanders. She reconstructed the abdominal wall defect. Her assistance was critical to allow for us to execute the surgery in a safe and timely manner.
--- NOTE | 2025-04-22 17:34 | OR.RPT ---
Addendum entered and electronically signed by Jennifer Parker MD 04/27/25 16:46:
Additional pre-op diagnosis: surgically generated bilateral ventral wall hernias
Additional post-op diagnosis:surgically generated bilateral ventral wall hernias
Original Note:
Operative Report
Operative Report
Date of procedure: 04/22/2025
Surgeon: Elena
Preoperative diagnosis: Left breast CA status post bilateral mastectomy left sentinel lymph node mapping and biopsy and postmastectomy radiation therapy as well as implant-based reconstruction
Postoperative diagnosis: Same
Procedure: Bilateral mammotomies, removal of expanders, Repair of abdominal wall hernias incurred during D IEP flap reconstruction
The patient is a 50 Y/O female who previously underwent nipple sparing bilateral mastectomies for the treatment of left breast carcinoma. She underwent immediate commutator tester based reconstruction, required post-mastectomy radiation therapy and then
desired autologous flap reconstruction to be performed by Drs. Dinero and Trisha. I was present throughout the entire case to assist and perform the abdominal wall reconstruction as the Plastic Surgeons are not credentialed in General Surgery.
The patient was brought to the operative suite and in the supine position general anesthesia was induced. Estrada catheter was inserted using aseptic technique and the abdomen and chest were prepped in the usual sterile fashion. An appropriate
timeout was performed by all procedure members. Plastic surgery began with the harvesting of the abdominal wall flaps. I incised the marked inframammary breast incisions sharply with the blade. Dissection was carried down to the capsule and the
expanders were removed. On the left side there was extensive fibrosis present from an old capsule and this was excised and sent under separate cover. Moist packs were placed.
After the tissue flaps were harvested, two abdominal wall defects in the anterior abdominal wall had been created both measuring 3x 15 cm. Two portions of Phasix mesh peces cut to the bilateral defect size of 15 x 3 cm were fashioned and placed
under the anterior rectus abdominis muscle sheath on each side. The anterior abdominal wall fascia was reapproximated with interupted figure of eight 0-PDS suture. Then an 0-Stratifix suture was used to oversew the repairs on both sides. This
resulted in low tension on the anterior abdominal wall. Bilateral TAPS blocks were performed using 30cc of .25% marcaine plain. Drains were passed through the lateral abdominal wall and secured into position with 2-0 prolene. The remaining soft
tissue and skin closure was performed as described in the Plastic Surgical dictation.
[id number])
After the tissue flaps were harvested, two abdominal wall defects in the anterior abdominal wall had been created both measuring 5 x 15 cm. Two portions of Phasix mesh
cut to the bilateral defect size of 15 x 5 cm were fashioned and placed under the anterior rectus abdominis muscle sheath on each side. The anterior abdominal
wall fascia was reapproximated with interupted figure of eight 0-PDS suture. Then an 0-Stratifix suture was used to oversew the repairs on both sides.
This resulted in low tension on the anterior abdominal wall.
Bilateral TAPS blocks were performed using 30cc of .25% marcaine plain. Drains were passed through the lateral abdominal wall and secured into position with 2-0 prolene.
The remaining soft tissue and skin closure was performed as described in the Plastic Surgical dictation.
([id number])
--- NOTE | 2025-04-22 18:05 | PTCARENOTE ---
Pt arrived post op to ICU, s/p bilat MEHUL flap breast surgery. Pt awake, alert, and oriented x3. HR SR as per monitor, BP 130/70. T 97.6 oral, aj huggar applied on arrival, set at med. T 97.6 oral. Bilat seq TEDS on. DP pulses palp. Bilat breast
and ABD drsgs intact. Bilat external breast pulses present with doppler. Dr Dinero and Dr Rico in to see patient 30 mins after arrival, and also assessed patient's breast pulses, which were present with doppler, Pt with abd drsg intact with IVANA
drain/drsg, which was received blinking green and yellow. Both Jarret Dinero and Trisha saw IVANA and were good with activity. 4 BELLA drains intact, labeled A- (L breast), B-(L abd), C- (R breast), D- (R abd) ,draining serous sang drainage. Pt on 2l nc, o2
sat=97%, lobes clear and sl diminished at bases bilat. Abd drsg dry with IVANA as noted. Estrada cath intact draining yellow urine, 125 ml first hr in ICU. Pt's and daughter to room and updated. Pt denies any pain at this time.
--- NOTE | 2025-04-22 19:26 | PTCARENOTE ---
on assessment pt AAOx3, c/o pain 2/10 at this time, OAKES, SR on the monitor, SCDs on, 2L NC 97%, lungs clear and no complaints of SOB, clear liquid diet, pabon in place due to be removed POD#1, ABD JPx4, LR at 125/hr, b/l breast incision + paddle
pulses, see flow sheet, ABD dressing with IVANA and not blinking at this time but C/D/I, bhanu RN reports MD at the bedside and aware, aj zarco on per orders, call reyez in reach and family at bedside.
[2025-04-22] MEDS: ZOFRAN 4 MG IV (19:41)
[2025-04-22] MEDS: LR 1000 IV ×2 (19:41→23:04)
[2025-04-22] MEDS: VALIUM 5 MG PO (21:46)
[2025-04-22] MEDS: TYLENOL 1000 MG PO (21:46)
[2025-04-22] MEDS: NEURONTIN 300 MG PO (23:00)
[2025-04-22] MEDS: ANCEF 10 IV (23:00)
[2025-04-22] MEDS: ROXICODONE 5 MG PO (23:00)
--- NOTE | 2025-04-22 23:11 | PTCARENOTE ---
pt c/o pain 01/31, PRN meds given, allergy to pain meds noted, pt states it makes her nose 'itchy', verified with pt and pharmacy to give, see MAR
[2025-04-22] MEDS: COMPAZINE 10 MG IV (23:22)
[2025-04-23] VITALS (27 sets, daily range): BP systolic 94–137; BP diastolic 46–91; BMI 29.5
--- NOTE | 2025-04-23 03:25 | PTCARENOTE ---
no changes from prior assessment, b/l breast paddle with + doppler, scant amount of drainage, call reyez in reach
[2025-04-23 04:04] LABS: APTT 22.7 Sec (23.4-35.0); INR 1.00; PT 13.7 Sec (11.4-14.6)
[2025-04-23 04:06] LABS: Blood Urea Nitrogen 8 mg/dl (7-17); Calcium 7.4 mg/dl (8.4-10.2); Carbon Dioxide 24 mmol/L (22-30); Chloride 107 mmol/L (98-107); Estimated Creatinine Clearance 110 ml/min; Glucose 124 mg/dl (70-99); Hematocrit 25.4 % (37.0-47.0); Hemoglobin 9.0 g/dL (12.0-16.0); Magnesium 2.1 mg/dl (1.6-2.3); Mean Corp Hgb Conc. 35.4 g/dL (33.0-37.0); Mean Corpuscular Volume 100.4 fL (81.0-99.0); Nucleated Red Blood Cells % 0 %; Platelet Count 188 10^3/uL (130-400); Potassium 3.9 mmol/L (3.5-5.1); Red Cell Dist. Width 13.2 % (11.5-14.5); Sodium 138 mmol/L (135-145); eGFR > 60.00
--- NOTE | 2025-04-23 07:09 | CON.INTV ---
Consultation
Consultation Request
Date/Time Consultation Requested: 04/22/25
Date/Time Consultation Performed: 04/23/25
Performing Provider: Chaparro
Reason for Consultation: FLAP
Medical History
-
History of Present Illness:
Patient is a 54-year-old female with previous history of breast cancer, hypertension with a history of bilateral breast augmentation with saline implants over 10 years ago presenting for elective reconstructive breast surgery. She had undergone
bilateral mastectomies and branch credit counselor recon with implant removal. She will be proceeding with radiation therapy for her breast cancer and will plan for MEHUL flap surgery 6 months after.
Underwent her procedure with plastic surgery on 04/22/2025, postoperatively transferred to ICU for further management.
Past Medical History
Past Medical History: Other (see list below)
Social History
Tobacco: Non-smoker
Alcohol: None
Drug: None
Family History
Family History: Reviewed & Not Pertinent
Allergies / Home Medications
Allergies
Allergy/AdvReac Type Severity Reaction Status Date / Time
oxycodone (From Percocet) Allergy NASAL Verified 04/22/25 06:46
PRURITUS
Home Medications
�Medication �Instructions �Recorded �Confirmed �Last Taken �Type
escitalopram oxalate 10 mg tablet 10 mg PO DAILY Mental 12/31/11 04/22/25 04/22/25 05:30 History
Health/Anxiety
amlodipine 5 mg tablet 5 mg PO HS Blood Pressure 01/11/24 04/22/25 04/21/25 17:00 History
nebivolol 10 mg tablet (Bystolic) 10 mg PO DAILY Blood Pressure 01/11/24 04/22/25 04/22/25 05:30 History
cholecalciferol (vitamin D3) 25 25 mcg PO DAILY Supplement 07/15/24 04/22/25 2 Weeks Ago History
mcg (1,000 unit) tablet (Vitamin ~04/08/25
D3)
magnesium 200 mg tablet 200 mg PO DAILY Supplement 07/15/24 04/22/25 2 Weeks Ago History
~04/08/25
multivitamin 1 tab PO DAILY Supplement 07/15/24 04/22/25 2 Weeks Ago History
~04/08/25
diazepam 5 mg tablet 5 mg PO TIDPRN PRN Muscle Spasms 07/23/24 04/22/25 6 Months Ago Rx
14 days #42 tabs ~10/23/24
abemaciclib 100 mg tablet 100 mg PO BID 04/15/25 04/22/25 04/22/25 05:30 History
(Verzenio)
letrozole 2.5 mg tablet 2.5 mg PO DAILY 04/15/25 04/22/25 04/22/25 05:30 History
Review of Systems
-
History Source: Patient
All other systems: Negative unless noted
Vitals / Labs / Diagnostic Testing
Vital Signs
Temp Pulse Resp BP Pulse Ox
98.1 F 94 13 103/56 97
04/23/25 06:00 04/23/25 06:30 04/23/25 06:30 04/23/25 06:00 04/23/25 06:30
Lab Data
04/23/25 03:16
04/23/25 03:16
Laboratory Results
04/23/25
03:16
PT 13.7
INR 1.00
APTT 22.7 L
Diagnostic Testing:
Physical Exam
-
HEENT: Normocephalic, Anicteric and Moist Mucous Membranes
Cardiovascular: S1/S2 and Regular Rhythm
Respiratory: Clear and Non-Labored Respirations
GI: Soft, Non Distended and Non Tender
Neurology: Awake, Alert, Oriented and No Motor Deficits
Skin: Warm, Dry and Good Color
General: Comfortable, Pain and Other (NAD)
Assessment
-
Patient is a 54-year-old female with previous history of breast cancer, hypertension with a history of bilateral breast augmentation with saline implants over 10 years ago presenting for elective reconstructive breast surgery. She had undergone
bilateral mastectomies and branch credit counselor recon with implant removal. She will be proceeding with radiation therapy for her breast cancer and will plan for MEHUL flap surgery 6 months after.
Underwent her procedure with plastic surgery on 04/22/2025, postoperatively transferred to ICU for further management.
Bilateral mastectomy status post MEHUL flap 04/22/25
History of breast cancer status post chemo and radiation
Conditions present prior to admission
Breast cancer
Hypertension
Breast implant surgery 2010
Lasik 1999
Plan
S/p MEHUL Flap by plastic surgery 04/22/25
Observe overnight following procedure
Follow CBC, neurovascular checks
Follow q1 blood flow monitoring to flap
Notify surgical team if compromised
Avoid pressors
Bolus IVFs for hypotension, can stop maintenaince fluids
Pain control via RESEARCH ADVISOR
Encouraged patient use prior to movement/PT
No prior h/o lung disease, nonsmoker
CXR n/a
Aspiration precautions
Restart diet per protocol/advance as tolerated
GI ppx if indicated
DVT ppx held, SCDs
Creat at baseline, follow UO
No signs/symptoms suspicious for infectious etiology at this time.
Will observe off antibiotics for now.
Encourage OOB, early mobility
PT/OT
Incentive spirometer encouraged to prevent postoperative atelectasis
DVT ppx as indicated postop
SCDs
Monitor 48 hours, frequent vascular checks
If doing well, can transfer to floors with approval by primary team.
Diagnostic Data
Chest X-Ray:
CT Scan: AP 01/12/25- 1. No evidence of significant atherosclerosis within the abdomen or pelvis. 2. Both inferior epigastric arteries are patent, of normal caliber, and demonstrate multiple perforators.
Chest 10/31/24- IMPRESSION: 1. Postoperative changes left axilla, lymphadenopathy no longer identified. No new findings suspicious for metastatic disease.
2. Incidental small lytic lesion with internal calcification left femoral head as above. This has indolent, nonaggressive appearance suggesting benign etiology and is unchanged from the prior study. 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
rather than benign neoplasm, exact etiology indeterminate.
Echo: 05/05/24- 1. Left ventricle: Technically difficult parasternal images. Apical 2 and four-chamber images are of good quality. Grossly, the left ventricular chamber dimensions are within normal limits and the estimated ejection fraction is
55- 60% by volumetric assessment. Global longitudinal strain measures -18.7% 2. Right ventricle: Normal 3. Atria: Normal 4. Mitral valve: Mild mitral regurgitation 5. Aortic valve: Trace-mild aortic insufficiency 6. Tricuspid valve: Trace
tricuspid regurgitation with estimated pulmonary artery systolic pressures of 20-25 mmHg 7. When compared to the most recent echocardiogram from 01/10/2024 no significant change has occurred global longitudinal strain on the prior study measured
-17.7% and measures -18.7% on the current study
PFT's:
Reports and relevant images were personally reviewed.
Critical Care time 45 mins -- this includes review of history, physical exam, medications, hemodynamic/ventilator parameters, laboratory data, imaging and discussion with house staff, pharmacy, nursing and patient's family.
[2025-04-23] MEDS: ROXICODONE 5 MG PO ×4 (08:02→22:56)
[2025-04-23] MEDS: NEURONTIN 300 MG PO ×3 (08:02→23:00)
[2025-04-23] MEDS: TYLENOL 1000 MG PO ×4 (08:03→21:08)
[2025-04-23] MEDS: SENOKOT 8.6 MG PO ×2 (08:04→21:08)
[2025-04-23] MEDS: COLACE 100 MG PO ×3 (08:04→21:08)
[2025-04-23] MEDS: VALIUM 5 MG PO ×3 (08:04→21:08)
[2025-04-23] MEDS: ANCEF 10 IV ×2 (08:05→15:56)
[2025-04-23] MEDS: LEXAPRO 10 MG PO (09:58)
--- NOTE | 2025-04-23 10:18 | PTCARENOTE ---
Received pt awake and alert.Speech is appropriate.+OAKES.Assisted OOB with 2 person minimal assist.Beach position maintained.c/o 5/10 bl breast and abdominal incision pain.Medicated with Oxycodone.SR noted.IVF discontinued as ordered.Decreased breath
sounds bibasilar.POX 97% on RA.Pt using IS as ordered.Appetite good.No BM.Estrada discontinued at 0900.Skin integrity as documented.Pt's at bedside.Plan of care discussed with pt and her .
--- NOTE | 2025-04-23 12:16 | PTCARENOTE ---
Pt assessed.No change in assessment noted.
--- NOTE | 2025-04-23 13:20 | PTCARENOTE ---
Pt c/o severe pain despite Oxycodone administration.Dr Toth made aware. 10 mg dose added to MAR as order MD order. Additional 5 mg Oxycodone given to equal 10mg Oxycodone dose.
--- NOTE | 2025-04-23 14:13 | W.PN.PLAS ---
Today's Communication
-
Estrada out
Out of bed to chair
Progress Note
Subjective Data
Doing well, denies shortness of breath
Subjective: Estrada Removed
Objective Data
Vital Signs
Temp Pulse Resp BP Pulse Ox
98.5 F 85 21 109/65 94
04/23/25 11:24 04/23/25 12:15 04/23/25 12:15 04/23/25 12:00 04/23/25 12:15
Intake and Output
04/22/25 04/23/25 04/24/25
06:59 06:59 06:59
Intake Total 1660 / 1785 835 / 835
Output Total 2203 / 2403 550 / 550
Balance -543 / -618 285 / 285
Intake:
Oral fluids 60 / 60 460 / 460
IV fluids (Total) 1600 / 1725 375 / 375
LR from OR 100 / 100
Lr 1,000 ml @ 125 mls/hr IV . 1500 / 1625 375 / 375
Q8H LUIS Rx#:[id number]
Output:
Drain Output (Total) 173 / 173 50 / 50
Left Abdomen B 28 / 28 20 / 20
Left Breast A 55 / 55 5 / 5
Right Abdomen D 45 / 45 15 / 15
Right Breast C 45 / 45 10 / 10
Urine, Estrada 2029 / 2229 500 / 500
Physical exam:
No acute distress
No increased work of breathing
Bilateral breast flaps warm and well-perfused in appearance
Doppler signals intact
No evidence of venous congestion
BELLA drains serosanguineous with appropriate output
Lab Results
04/23/25 03:16
04/23/25 03:16
Assessment / Plan
Status post bilateral MEHUL flap breast reconstruction
Postop day 1 free flap protocol
Lovenox, SCDs
Regular diet
P.o. pain control
--- NOTE | 2025-04-23 16:00 | PTCARENOTE ---
Pt assessed.No change in assessment noted.
--- NOTE | 2025-04-23 17:05 | CM ---
Patient seen at bedside in ICU. Patient lives with family in a 2 story home. Patient PCP is Dr. Hays and Patient uses the [facility] and after discussion he would like [facility], CM requested [facility] liaison to assess and confirm ability to
follow for wound care. Patient plan is for home with medically appropriate. CM will continue to follow for discharge planning needs.
Plan; home with [facility]; pending acceptance from [facility]
--- NOTE | 2025-04-23 17:12 | PTCARENOTE ---
Pt assisted oob to chair with minimal assistance.
[2025-04-23] MEDS: LOVENOX 40 MG SC (18:02)
[2025-04-23] MEDS: ROXICODONE 10 MG PO (18:26)
--- NOTE | 2025-04-23 20:00 | PTCARENOTE ---
Received pt resting in bed, AAOx3. Without complaints, abdominal pain 2/10 following oxycodone dose. SR/ST on tele. HR 90-100s. BP 110-120s/70s. + pulses. Afebrile. SCDS maintained. On 2L NC, spo2 95%. Lungs diminished. I.S./cough/deep breathing
encouraged. Reached 1000 on I.S. + bowel sounds. Abdominal dressing c/d/i. BELLA drains x4 in place. See I&O. Breast paddle checks ongoing Q1h - all WNL at this time. Chair position maintained in bed. Call reyez in reach
[2025-04-24] VITALS (23 sets, daily range): BP systolic 98–129; BP diastolic 63–96; PULSE 103; O2SAT 98; BMI 29.6
--- NOTE | 2025-04-24 00:02 | PTCARENOTE ---
Medicated with 5mg oxycodone for 4/10 abdominal pain - pt reports relief.
Ambulated to bathroom with 2 person min. assist. Bathed with CHG. Pt. resting between checks.
[2025-04-24] MEDS: ROXICODONE 10 MG PO ×3 (02:56→17:05)
--- NOTE | 2025-04-24 05:40 | W.PN.UPDATE ---
Update Note
Progress Note Update
Brief burst of AFIB after getting out of bed. (Lasting less than five minutes). Resolved on its own. Labs sent.
[2025-04-24 05:49] LABS: Hematocrit 27.0 % (37.0-47.0); Hemoglobin 9.3 g/dL (12.0-16.0); Mean Corp Hgb Conc. 34.4 g/dL (33.0-37.0); Mean Corpuscular Volume 103.4 fL (81.0-99.0); Platelet Count 169 10^3/uL (130-400); Red Cell Dist. Width 13.8 % (11.5-14.5)
--- NOTE | 2025-04-24 05:49 | PTCARENOTE ---
Pt. ambulated to bathroom then wanted to sit in recliner. Standby assist with activity - pt reports feeling improved with her movement.
After getting to recliner, HR 160-170s. Appeared to be in afib but then flipped back in NSR HR 100. EKG obtained and pt. flipped back into afib again briefly - was able to capture it on EKG - see on chart. Pt. now maintaining NSR, HR 90-100. Pt.
reports being asymptomatic throughout. BP stable. AM labs drawn. PORTER [place] aware of all - lopressor initially ordered but it was never given.
[2025-04-24 06:17] LABS: Magnesium 2.0 mg/dl (1.6-2.3)
[2025-04-24 06:18] LABS: Blood Urea Nitrogen 4 mg/dl (7-17); Calcium 8.1 mg/dl (8.4-10.2); Carbon Dioxide 27 mmol/L (22-30); Chloride 106 mmol/L (98-107); Estimated Creatinine Clearance 111 ml/min; Glucose 130 mg/dl (70-99); Potassium 3.5 mmol/L (3.5-5.1); Sodium 138 mmol/L (135-145); eGFR > 60.00
--- NOTE | 2025-04-24 07:02 | W.PN.INTV ---
Today's Communication / Plan
Recommendations
AFib noted, resume home BB
Can follow up w/ cards as OP
PT/OT, encouraged IS
Can transfer to tele this evening, planning for d/c in AM
We will sign off upon transfer
Assessment
-
Patient is a 54-year-old female with previous history of breast cancer, hypertension with a history of bilateral breast augmentation with saline implants over 10 years ago presenting for elective reconstructive breast surgery. She had undergone
bilateral mastectomies and drier feeder recon with implant removal. She will be proceeding with radiation therapy for her breast cancer and will plan for MEHUL flap surgery 6 months after.
Underwent her procedure with plastic surgery on 04/22/2025, postoperatively transferred to ICU for further management.
Bilateral mastectomy status post MEHUL flap 04/22/25
History of breast cancer status post chemo and radiation
Conditions present prior to admission
Breast cancer
Hypertension
Breast implant surgery 2010
Lasik 1999
Plan
S/p MEHUL Flap by plastic surgery 04/22/25
Observe overnight following procedure
Follow CBC, neurovascular checks
Follow q1 blood flow monitoring to flap
Notify surgical team if compromised
Avoid pressors
Afib noted, can follow up OP cards
Resume home BB
Pain control via WATCH CRYSTAL CUTTER
Encouraged patient use prior to movement/PT
No prior h/o lung disease, nonsmoker
CXR n/a
Aspiration precautions
Restart diet per protocol/advance as tolerated
GI ppx if indicated
DVT ppx held, SCDs
Creat at baseline, follow UO
No signs/symptoms suspicious for infectious etiology at this time.
Will observe off antibiotics for now.
Encourage OOB, early mobility
PT/OT
Incentive spirometer encouraged to prevent postoperative atelectasis
DVT ppx as indicated postop
SCDs
Monitor 48 hours, frequent vascular checks
If doing well, can transfer to floors with approval by primary team. We will sign off upon transfer
Diagnostic Data
Chest X-Ray:
CT Scan: AP 01/12/25- 1. No evidence of significant atherosclerosis within the abdomen or pelvis. 2. Both inferior epigastric arteries are patent, of normal caliber, and demonstrate multiple perforators.
Chest 10/31/24- IMPRESSION: 1. Postoperative changes left axilla, lymphadenopathy no longer identified. No new findings suspicious for metastatic disease.
2. Incidental small lytic lesion with internal calcification left femoral head as above. This has indolent, nonaggressive appearance suggesting benign etiology and is unchanged from the prior study. 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
rather than benign neoplasm, exact etiology indeterminate.
Echo: 05/05/24- 1. Left ventricle: Technically difficult parasternal images. Apical 2 and four-chamber images are of good quality. Grossly, the left ventricular chamber dimensions are within normal limits and the estimated ejection fraction is
55- 60% by volumetric assessment. Global longitudinal strain measures -18.7% 2. Right ventricle: Normal 3. Atria: Normal 4. Mitral valve: Mild mitral regurgitation 5. Aortic valve: Trace-mild aortic insufficiency 6. Tricuspid valve: Trace
tricuspid regurgitation with estimated pulmonary artery systolic pressures of 20-25 mmHg 7. When compared to the most recent echocardiogram from 01/10/2024 no significant change has occurred global longitudinal strain on the prior study measured
-17.7% and measures -18.7% on the current study
PFT's:
Reports and relevant images were personally reviewed.
Critical Care time 31 mins -- this includes review of history, physical exam, medications, hemodynamic/ventilator parameters, laboratory data, imaging and discussion with house staff, pharmacy, nursing and patient's family.
Subjective Dataa
Subjective Data
Date of Service:
Date of Service: April 24, 2025
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
Subjective:
No events ON, pain better today
Stable on RA
Afib noted on monitor briefly
Objective Data
Data Reviewed
Vital Signs / I&O / Oxygen:
Vital Signs
Temp Pulse Resp BP Pulse Ox
98.3 F 91 15 123/80 96
04/24/25 03:27 04/24/25 04:00 04/24/25 04:00 04/24/25 04:00 04/24/25 04:00
Intake and Output
04/23/25 04/24/25 04/25/25
06:59 06:59 06:59
Intake Total 1660 / 1785 1075 / 1075
Output Total 2203 / 2403 655 / 655
Balance -543 / -618 420 / 420
SaO2 96
Nasal Cannula flow liters per 1
minute
Physical Exam
General: Comfortable, Pain and Other (NAD)
HEENT: Normocephalic, Anicteric and Moist Mucous Membranes
Cardiovascular: S1-S2 and Regular Rhythm
Respiratory: Clear and Non-Labored Respirations
GI: Soft, Non Distended and Non Tender
Neurology: Awake, Alert, Oriented and No Motor Deficits
Skin: Warm, Dry and Good Color
Labs/Micro/Reports
Lab Data
04/24/25 05:42
04/24/25 05:42
[2025-04-24] MEDS: COLACE 100 MG PO ×3 (07:42→21:11)
[2025-04-24] MEDS: NEURONTIN 300 MG PO ×2 (07:42→17:08)
[2025-04-24] MEDS: TYLENOL 1000 MG PO ×4 (07:42→21:11)
[2025-04-24] MEDS: LEXAPRO 10 MG PO (07:42)
[2025-04-24] MEDS: ROXICODONE 5 MG PO (07:42)
[2025-04-24] MEDS: SENOKOT 8.6 MG PO ×2 (07:42→21:11)
[2025-04-24] MEDS: VALIUM 5 MG PO ×3 (07:43→21:12)
--- NOTE | 2025-04-24 08:26 | PTCARENOTE ---
Received pt awake and alert sitting in recliner chair.c.o 4/10 abdominal and bl breast pain.Requested and received 5mg Oxycodone.0734 assisted OOB to bathroom.ST burst to 155 with PAC's noted.Denies chest pressure or discomfort.HR spontaneously
returned to 122-108. Pres[address] ST 103.POX 97% O2 1l NC.Decreased breath sounds bibasilar.IS 1000 ml.Appetite good.Voiding yellow urine.Skin integrity as documented.Plan of care discussed.
--- NOTE | 2025-04-24 09:00 | W.PN.PLAS ---
Today's Communication
-
POD 2 flap protocol
Progress Note
Subjective Data
Doing well, denies SOB
Objective Data
Vital Signs
Temp Pulse Resp BP Pulse Ox
97.9 F 80 9 114/72 98
04/25/25 08:07 04/25/25 08:03 04/25/25 06:00 04/25/25 08:03 04/25/25 06:00
Intake and Output
04/24/25 04/25/25 04/26/25
06:59 06:59 06:59
Intake Total 1075 / 1075 600 / 600
Output Total 655 / 655 162 / 162
Balance 420 / 420 438 / 438
Intake:
Oral fluids 700 / 700 600 / 600
IV fluids (Total) 375 / 375
Lr 1,000 ml @ 125 mls/hr IV . 375 / 375
Q8H LUIS Rx#:[id number]
Output:
Drain Output (Total) 155 / 155 162 / 162
Left Abdomen B 30 / 30 69 / 69
Left Breast A 40 / 40 37 / 37
Right Abdomen D 45 / 45 15 / 15
Right Breast C 40 / 40 41 / 41
Urine, Estrada 500 / 500
Other:
Number of approximated MODERATE 1 1 4
amounts of urine
Number of approximated LARGE 1 1
amounts of urine
Physical exam:
No acute distress
No increased work of breathing
Bilateral breast flaps warm and well-perfused in appearance
Doppler signals intact
No evidence of venous congestion
BELLA drains serosanguineous with appropriate output
Lab Results
04/24/25 05:42
04/24/25 05:42
Assessment / Plan
status post bilateral mastectomy with immediate reconstruction with tissue expanders, implant removal
Expected dilutional anemia
Regular diet
lovenox/SCDs
Ambulate
--- NOTE | 2025-04-24 09:04 | PTCARENOTE ---
ST 143 with PAC's noted while pt ambulating in hallway with PT.Asymptomatic. HR 97 SR at present.
[2025-04-24] MEDS: BYSTOLIC 10 MG PO (10:42)
--- NOTE | 2025-04-24 11:34 | PTCARENOTE ---
Pt assessed.No change in assessment noted.
--- NOTE | 2025-04-24 12:13 | VNURNOTE ---
Application Chemist met with patient and to discuss [facility] nurse/therapy, visits, schedule and homebound status. Patient is agreeable and understands that visits at home will be 2-3 x per week to assess and teach medical management.
Patient is aware that [facility] will contact them for start of care in 1-2 days after discharge from .
VN referral completed in Care Port.
--- NOTE | 2025-04-24 14:15 | CM ---
Anticipate discharge on 04/25/25. Plan for [facility] RN for wound care. Referral previously forwarded and [facility] accepted.
--- NOTE | 2025-04-24 16:00 | PTCARENOTE ---
Pt assessed.No change in assessment noted.Pt showered as per MD order.Tele as per MD order.
--- NOTE | 2025-04-24 16:01 | PN.CDI ---
CDI
- -
CDI:
Physician Documentation Request
Admit Date: 04/22/25 06:02
Dear Doctor Trisha,
Clinical Indicators:
Patient admitted with breast cancer; s/p bilateral MEHUL flap breast reconstruction 04/22.
04/22 Anesthesia Report, IVF: Normosol 3500 ml Blood loss: 150 ml
Hgb/Hct trend:
04/07/25 04/23/25 04/24/25
06:50 03:16 05:42
Hgb 12.1 9.0 L 9.3 L
Hct 33.5 L 25.4 L 27.0 L
Based on the above, could you clarify in the progress notes, the appropriate diagnosis, if significant, that supports the above abnormalities and additional evaluation, monitoring and/or treatment rendered:
Anemia multifactorial, due to acute blood loss and hemodilution
Anemia due to hemodilution only
Other, please specify
Use of terms such as suspected, likely, concern for, or probable (associated with a specific diagnosis that is being evaluated, monitored, or treated as if it exists) are acceptable and can be coded in the inpatient setting, when documented at the
time of discharge.
Thank you,
SHARON Duarte RN
CDI Specialist
available via tiger text
Please use your independent medical judgment in providing your response.
[2025-04-24] MEDS: ZOFRAN 4 MG IV (17:08)
[2025-04-24] MEDS: LOVENOX 40 MG SC (18:27)
[2025-04-25] VITALS (9 sets, daily range): BP systolic 91–114; BP diastolic 57–80; BMI 28.4
[2025-04-25] MEDS: ROXICODONE 10 MG PO ×2 (00:14→08:54)
[2025-04-25] MEDS: NEURONTIN 300 MG PO ×2 (00:14→08:03)
--- NOTE | 2025-04-25 07:30 | PTCARENOTE ---
Received patient A&Ox4, on RA, NSR, BP WNL, GI/ continent, pending discharge today.
[2025-04-25] MEDS: ZOFRAN 4 MG IV (08:02)
[2025-04-25] MEDS: TYLENOL 1000 MG PO (08:02)
[2025-04-25] MEDS: LEXAPRO 10 MG PO (08:03)
[2025-04-25] MEDS: VALIUM 5 MG PO (08:03)
[2025-04-25] MEDS: BYSTOLIC 10 MG PO (08:03)
[2025-04-25] MEDS: COLACE PO (08:06)
[2025-04-25] MEDS: SENOKOT PO (08:06)
--- NOTE | 2025-04-25 08:25 | W.PN.PLAS ---
Today's Communication
-
Discharge to home with VN
Progress Note
Subjective Data
Doing well, Denies SOB
Objective Data
Vital Signs
Temp Pulse Resp BP Pulse Ox
97.9 F 80 9 114/72 98
04/25/25 08:07 04/25/25 08:03 04/25/25 06:00 04/25/25 08:03 04/25/25 06:00
Intake and Output
04/24/25 04/25/25 04/26/25
06:59 06:59 06:59
Intake Total 1075 / 1075 600 / 600
Output Total 655 / 655 162 / 162
Balance 420 / 420 438 / 438
Intake:
Oral fluids 700 / 700 600 / 600
IV fluids (Total) 375 / 375
Lr 1,000 ml @ 125 mls/hr IV . 375 / 375
Q8H LUIS Rx#:[id number]
Output:
Drain Output (Total) 155 / 155 162 / 162
Left Abdomen B 30 / 30 69 / 69
Left Breast A 40 / 40 37 / 37
Right Abdomen D 45 / 45 15 / 15
Right Breast C 40 / 40 41 / 41
Urine, Estrada 500 / 500
Other:
Number of approximated MODERATE 1 1 4
amounts of urine
Number of approximated LARGE 1 1
amounts of urine
Physical exam:
No acute distress
No increased work of breathing
Bilateral breast flaps warm and well-perfused in appearance
Doppler signals intact
No evidence of venous congestion
BELLA drains serosanguineous with appropriate output
Lab Results
04/24/25 05:42
04/24/25 05:42
Assessment / Plan
prior bilateral mastectomy with immediate reconstruction with tissue expanders, implant removal now s/p bilateral MEHUL flap breast reconstruction
Expected dilutional anemia
Regular diet
lovenox/SCDs
Ambulate
--- NOTE | 2025-04-25 08:25 | W.DCSUMMARY ---
Discharge Summary
Discharge Data
Date of Admission: 04/22/25
Date of Discharge: 04/25/25
-
Pending Results: No
Hospital Course
Routine postop course after MEHUL flap breast reconstruction. Admitted to ICU for q1H flap monitoring. Progressively able to ambulate, tolerate a regular diet and void. Pain controlled on PO medications. Discharged with VN and close surgical follow up
Discharge Plan
-
Patient Disposition: Home (Routine Discharge)
Discharge Diagnosis/Procedures: s/p MEHUL flap breast reconstruction
Condition: Good
Diet: Regular
Activity: No strenuous activity
Additional Activity: walk daily, no heavy lifting >10 lbs
Driving Restrictions: Not until seen by your Dr
Bathing Restrictions: OK to Shower
Other Services: VN
Wound Care: Strip and record drain output twice daily, ABD pads over incisions as needed, binder as needed
Referrals:
Primitivo Hays MD [Family Provider, Family Practice]
Miladys Zavaleta MD [Active, Cardiology] - 05/13/25 4:20 pm
Referral Note: You have a cardiology follow-up appointment at the [place] office. Please call with questions
Prescriptions:
New
docusate sodium 100 mg Capsule
100 mg PO TID PRN (Reason: constipation) Qty: 90 0RF
acetaminophen [Tylenol Extra Strength] 500 mg Tablet
1,000 mg PO QID Qty: 90 2RF
gabapentin 300 mg Capsule
300 mg PO Q8 30 Days Qty: 90 3RF
oxycodone 5 mg Tablet
5 mg PO Q4HPRN PRN (Reason: moderate pain) 7 Days Qty: 24 0RF
enoxaparin 40 mg/0.4 mL Syringe
40 mg SC QPM 14 Days Qty: 5.6 0RF
diazepam 5 mg Tablet
5 mg PO TID 14 Days Qty: 42 0RF
Continued
escitalopram oxalate 10 MG tablet
10 mg PO DAILY
Patient Comments:
pt. stated that she took this medication today.
amlodipine 5 mg Tablet
5 mg PO HS
nebivolol [Bystolic] 10 mg Tablet
10 mg PO DAILY
multivitamin Tablet
1 tab PO DAILY
magnesium 200 mg Tablet
200 mg PO DAILY
cholecalciferol (vitamin D3) [Vitamin D3] 25 mcg (1,000 unit) Tablet
25 mcg PO DAILY
Held
letrozole 2.5 mg Tablet
2.5 mg PO DAILY
Hold Instructions: Resume on 05/06/25.
Verzenio 100 mg Tablet
100 mg PO BID
Hold Instructions: Resume on 05/06/25.
Discontinued
diazepam 5 mg Tablet
5 mg PO TIDPRN PRN (Reason: Muscle Spasms) 14 Days Qty: 42 0RF
Discharge Orders:
Discharge Patient (As Directed); Ordered 04/25/25
Ordered By: Ismael Rico
Discharge Date and Time
Print Language: OMANI
--- NOTE | 2025-04-25 09:28 | CM ---
Reviewed chart. Patient to discharge to home with [facility] today. Family to transport home. CM continues to be available to patient/family and is monitoring medical plan for needs at discharge.
Plan: Discharge to home with [facility].
== END 2025-04-25 10:38 | disposition home or self-care (01) | DRG 581 ==
LOC: ICU 06:02
PROVIDERS: Nurse Practitioner Primary Care; ADMITTING PHYSICIAN Surgery Plastic and Reconstructive Surgery; FAMILY PHYSICIAN Family Medicine; OTHER PHYSICIAN Internal Medicine; REFERRING PHYSICIAN Surgery
PROC: 07B80ZX Excision of Right Internal Mammary Lymphatic, Open Approach, Diagnostic (ICD-10-PCS; 2025-04-22)
PROC: 0HRV077 Replacement of Bilateral Breast using Deep Inferior Epigastric Artery Perforator Flap, Open Approach (ICD-10-PCS; 2025-04-22)
PROC: 0WUF0JZ Supplement Abdominal Wall with Synthetic Substitute, Open Approach (ICD-10-PCS; 2025-04-22)
PROC: 0HPT0NZ Removal of Tissue Expander from Right Breast, Open Approach (ICD-10-PCS; 2025-04-22)
PROC: 07B90ZX Excision of Left Internal Mammary Lymphatic, Open Approach, Diagnostic (ICD-10-PCS; 2025-04-22)
PROC: 0HPU0NZ Removal of Tissue Expander from Left Breast, Open Approach (ICD-10-PCS; 2025-04-22)
DX: Z42.1 Encounter for breast reconstruction following mastectomy (principal); K43.9 Ventral hernia without obstruction or gangrene; I10 Essential (primary) hypertension; I48.91 Unspecified atrial fibrillation; D64.89 Other specified anemias; Z85.3 Personal history of malignant neoplasm of breast; Z92.21 Personal history of antineoplastic chemotherapy; Z92.3 Personal history of irradiation
CPT/HCPCS: 36415; 71045; 80048; 80053; 83735; 84100; 85025; 85027; 85610; 85730; 88304; 88305; 93005; 97162; 97530; A4648; C1729; C1781

== ENCOUNTER → 2025-06-05 13:51 | Outpatient (REF) | payer OTHER, SELFPAY | LOC: RCS 13:51 | PROVIDERS: ATTENDING PHYSICIAN Internal Medicine Cardiovascular Disease; FAMILY PHYSICIAN Family Medicine | DX: Z85.3 Personal history of malignant neoplasm of breast (principal); T45.1X5D Adverse effect of antineoplastic and immunosuppressive drugs, subsequent encounter | CPT/HCPCS: 93306; 93356 ==

== ENCOUNTER 2025-07-01 05:59 | Day surgery (SDC) | payer OTHER, SELFPAY ==
[2025-07-01] VITALS (10 sets, daily range): BP systolic 111–134; BP diastolic 69–84; BMI 25.8
[2025-07-01] MEDS: TYLENOL 1000 MG PO (06:50)
[2025-07-01] MEDS: NORMOSOL-R/PLASMALYTE-A 1000 IV (07:01)
--- NOTE | 2025-07-01 10:24 | W.IMMPOSTOP ---
Surgical Immed Post Op Note
-
Primary Surgeon: BANDAR Rico MD
Assisting Surgeon:
Pre-op Diagnosis: H/o breast CA, h/o radiation, s/p surgically acquired abscence of bilateral breasts
Post-op Diagnosis: Same
Procedure Performed: Revision to right reconstructed breast, fat grafting to right reconstructed breast 190cc, bilateral abdominal dog ear excision, suction assisted lipectomy of trunk
Anesthesia Type: GA
Specimen / Cultures: None
Estimated Blood Loss: 30cc
Complications: None
Operative Findings: As expected
--- NOTE | 2025-07-01 10:47 | OR.RPT ---
Operative Report
Operative Report
Date of surgery: 07/01/2025
Surgeon: BANDAR Rico MD
Preoperative diagnosis:
1. History of breast cancer
2. History of radiation
3. 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
4. Status post MEHUL flap breast reconstruction
Postoperative diagnosis: Same
Procedure:
1. Revision of the right reconstructed breast
2. Suction assisted lipectomy trunk, right chest wall, adjunct to breast reconstruction
3. Fat grafting to the right reconstructed breast, donor site lateral flanks, 190 cc
4. Bilateral abdominal dogear excisions with adjacent tissue transfer (2 x 4.5 cm; 3.5 x 7 cm)
Complications: None
Anesthesia: General
EBL: 30 cc
Specimens: None
Indications for procedure: Patient is a 54-year-old female with a history of breast cancer status post bilateral mastectomies and staged gate manager to MEHUL flap breast reconstruction. She suffered a notable contracture of the left breast tissue with
radiation therapy. She underwent successful conversion to MEHUL flap autologous reconstruction bilaterally. She is left with some asymmetry of the bilateral breast with contour abnormalities. Bilateral dogear skin excess from abdominal donor site.
She would like revisions to the right reconstructed breast. We discussed that the left breast is not ready for revisions as it is still healing and with the radiation the residual edema could last for months. As such a plan was made for revisions
in the right reconstructed breast with fat grafting. Suction assisted lipectomy would be performed to the lateral chest wall in order to contour the breast for shape as a reconstructive adjunct. Bilateral abdominal dogears would be excised left
greater than right resulting in a elongated scar. The lateral flanks would then be used as a donor site for fat grafting which would be added to the right breast to correct volume deficiencies and symmetry. Risks were reviewed at length including
donor site, abnormalities, scar, hematoma, seroma, infection, skin loss and fat necrosis. She understood these risks and desire to proceed.
Procedure in detail: Patient was identified preoperatively the surgical site was confirmed to be the right breast right chest wall bilateral lateral abdomen flank. All questions were answered consents were confirmed. Patient was taken back to the
operating room placed supine on the table. Anesthesia was induced the patient was prepped and draped in usual sterile fashion using ChloraPrep solution. Timeout for patient safety was performed was confirmed that preoperative antibiotics have been
administered and bilateral SCDs were placed. Procedure began with the injection of 1% lidocaine with epinephrine into the proposed tumescent access sites. Tumescent solution consisting of 1 L normal saline with 1% lidocaine, 1 amp of epi, bicarb
was distributed over the lateral flanks and lateral chest wall. While this was taking its effect, the revision of right reconstructed breast was performed. The prior skin paddle from the MEHUL flap was excised using a 15 blade. The medial and
lateral inframammary scars were also excised. Prior mastectomy skin flaps were reelevated over the flap to allow for closure in the midline. As such a vertical mastopexy was effectively performed. Meticulous hemostasis was ensured and the wound
was closed in layers using 2-0 Vicryl followed by 3-0 and 4-0 Monocryl. Attention was then drawn to the suction assisted lipectomy where the lateral chest wall was contoured to create a definitive lateral breast boundary. The bilateral abdominal
flanks were then liposuction for fat graft harvest. Total of 490 cc were processed using the pure graft system for injection into the right breast. Bilateral abdominal dogears were excised after marking them out. These measured 2 x 4.5 cm on the
right and 3.5 x 7 cm on the left. Adjacent tissue transfers in the form of a backcut followed by rotation advancement was performed bilaterally to prevent recurrent dogear formation. These wounds were then closed in layers using 3-0 and 4-0
Monocryl. Fat graft was then injected to the right breast using a Trevino cannula distribute over the superior medial and central breast mound. All poke holes were closed with 5-0 fast. Patient tolerated procedure well was performed out
complication, all counts were correct at the end the case. She was extubated taken the PACU for further care.
== END 2025-07-01 12:08 | disposition home or self-care (01) ==
LOC: SDS 05:59
PROVIDERS: ATTENDING PHYSICIAN Surgery Plastic and Reconstructive Surgery
DX: C50.919 Malignant neoplasm of unspecified site of unspecified female breast (principal); N64.89 Other specified disorders of breast; T85.49XA Other mechanical complication of breast prosthesis and implant, initial encounter; Y93.9 Activity, unspecified; Z85.3 Personal history of malignant neoplasm of breast; Z90.13 Acquired absence of bilateral breasts and nipples; Z92.3 Personal history of irradiation; Z98.890 Other specified postprocedural states
CPT/HCPCS: 19380; L8000